=== PATIENT | male | born 1975 | race Two or more races ===

== ENCOUNTER 2020-03-23 14:55 | Emergency (ER) | payer MEDICAID, OTHER ==
[~2020-03-23] VITALS: Ht 188 cm; Wt 86.2 kg
[2020-03-23 14:57] VITALS: BP 115/94
[2020-03-23] MEDS ORDERED: DOXYCYCLINE 100 MG TAB/CAP PO ONE (17:00)
[2020-03-23] MEDS ORDERED: cefTRIAXone SOD 1,000 MG VL IM ONE (17:00)
== END 2020-03-23 17:56 | disposition home or self-care (01) ==
LOC: ER 14:55
DX: U07.1 COVID-19 (principal); R03.0 Elevated blood-pressure reading, without diagnosis of hypertension; J45.909 Unspecified asthma, uncomplicated
CPT/HCPCS: 36415; 71045; 87426; 96372; 99284; J0696